=== PATIENT | male | born 1990 | race Caucasian/White ===

== ENCOUNTER 2019-12-22 17:55 | Emergency (ER) | payer BC ==
[~2019-12-22] VITALS: Ht 175.3 cm; Wt 102.2 kg
[2019-12-22] MEDS ORDERED: MVI, ADULT NO.4 WITH VIT K 10 ML, FOLIC ACID INJ 1 MG, THIAMINE INJ 100 MG in IV NORMAL... IV ONE ×4 (18:30)
--- NOTE | 2019-12-22 18:36 | PHYS DOC ---
Past History Past Medical History: No Pertinent History Past Surgical History: No Surgical History Alcohol Use: None General Adult EDM: Chief Complaint: ANXIETY/PANIC ATTACK HPI: HPI: 29 yo male presents via EMS with panic attack. The patient is staying at a hotel because he is getting COVID-19 and he has an immunocompromised family member. He tells me that he was feeling like her legs began. Has had some coughing. Admits to some vomiting but [employer]. Because he was having a panic attack over the holiday and and they called EMS. He is not really sure why he is here. He denies fever or chills. He does not know the results Review of Systems: Review of Systems: Constitutional: Denies fever or chills Eyes: Denies change in visual acuity HENT: Denies nasal congestion or sore throat Respiratory: Cough with occasional shortness of breath Cardiovascular: Denies chest pain or edema GI: nausea, vomiting. Denies abdominal pain, bloody stools or diarrhea : Denies dysuria Musculoskeletal: Denies back pain or joint pain Integument: Denies rash Neurologic: Denies headache, focal weakness or sensory changes Endocrine: Denies polyuria or polydipsia Lymphatic: Denies swollen glands Psychiatric: Denies depression or anxiety Heart Score: Risk Factors: Risk Factors: DM, Current or recent (<one month) smoker, HTN, HLP, family history of CAD, obesity. Risk Scores: Score 0 - 3: 2.5% MACE over next 6 weeks - Discharge Home Score 4 - 6: 20.3% MACE over next 6 weeks - Admit for Clinical Observation Score 7 - 10: 72.7% MACE over next 6 weeks - Early Invasive Strategies Current Medications: Current Meds: Current Medications Medications (Trade) Dose Ordered Sig/[facility] Start Time Stop Time Status Last Admin Dose Admin Multivitamins/ Minerals 10 ml/ Folic Acid 1 mg/ Thiamine HCl 100 mg/Sodium Chloride 1,011.3 ml @ 1,000.187 mls/hr 1X ONCE 12/22/19 18:30 12/22/19 19:30 Allergies: Allergies: Allergies Coded Allergies Type Severity Reaction Last Updated Verified Penicillins Allergy Unknown 12/22/19 Yes Physical Exam: PE: Constitutional: Well developed, well nourished, no acute distress, intoxicated. [] HENT: Normocephalic, atraumatic, bilateral external ears normal, oropharynx moist, no oral exudates, nose normal. [] Eyes: PERRLA, EOMI, conjunctiva normal, no discharge. [] Neck: Normal range of motion, no tenderness, supple, no stridor. [] Cardiovascular:Heart rate regular rhythm, no murmur [] Lungs & Thorax: Bilateral breath sounds clear to auscultation [] Abdomen: Bowel sounds normal, soft, no tenderness, no masses, no pulsatile masses. [] Skin: Warm, dry, no erythema, no rash. [] Back: No tenderness, no CVA tenderness. [] Extremities: No tenderness, no cyanosis, no clubbing, ROM intact, no edema. [] Neurologic: Alert and oriented X 3, normal motor function, normal sensory function, no focal deficits noted. [] Psychologic: Affect normal, judgement normal, mood anxious. [] Current Patient Data: Vital Signs: Vital Signs Date Time Temp Pulse Resp B/P (MAP) Pulse Ox O2 Delivery O2 Flow Rate FiO2 12/22/19 18:24 98.5 80 20 113/68 (83) 99 EKG: EKG: Sinus rhythm, rate 77, normal axis, no ST elevations or depressions. [] Radiology/Procedures: Radiology/Procedures: [] Impressions: Chest AP portable at 2000: Reason for examination: Short of breath. Anxiety. The heart size is normal. Mediastinum is unremarkable. Lung holt show mild increase in markings at the right lung base which could reflect some minimal infiltrates. Recommend clinical correlation follow-up. No acute bony abnormalities are seen. Impression: Mild increase in markings at the right lung base. Cannot exclude some minimal infiltrates. Recommend clinical correlation and follow-up. Electronically signed by: Roxanne Mirza MD (12/22/2019 8:59 PM) [facility] DICTATED AND SIGNED BY: ROXANNE MIRZA MD DATE: 12/22/192058 CC: HAWA MARTINEZ DO; FAISAL GIPSON MD ~ Course & Med Decision Making: Course & Med Decision Making Pertinent Labs and Imaging studies reviewed. (See chart for details) The patient's labs are unremarkable. His chest x-ray is similar to previous, they could not exclude infiltrate. I do not have evidence of infiltrate with his vital signs are his labs. It is still possible that he has COVID-19. That is why he was tested by the health department. Those results are pending. I give the patient 50 mg of Benadryl for his anxiety. He is stable for discharge at this time. [] Dragon Disclaimer: Dragon Disclaimer: This electronic medical record was generated, in whole or in part, using a voice recognition dictation system. Departure Departure: Impression: Primary Impression: Anxiety Additional Impression: Intoxication Disposition: HOME/RESIDENCE PRIOR TO ADM Condition: STABLE Referrals: FAISAL GIPSON MD (PCP) Patient Instructions: Anxiety and Panic Attacks, [id number] Justification of Admission: Justification of Admission: Justification of Admission Dx: N/A HAWA MARTINEZ DO Dec 22, 2019 18:36
[2019-12-22 18:45] LABS: BASO # 0.1 x10^3/uL (0.0-0.2); BASO % 2 % (0-3); CALCIUM 8.6 mg/dL (8.5-10.1); CREATININE 0.9 mg/dL (0.7-1.3); EOS # 0.1 x10^3/uL (0.0-0.7); EOS % 2 % (0-3); GFR 99.8; HEMATOCRIT 50.9 % (39.0-53.0); HEMOGLOBIN 17.1 g/dL (13.0-17.5); LYMPH % 49 % (24-48); MEAN CORPUSCULAR HEMOGLOBIN 31 pg (25-35); MEAN CORPUSCULAR HGB CONC 34 g/dL (31-37); MEAN CORPUSCULAR VOLUME 93 fL (79-100); MONO # 0.5 x10^3/uL (0.0-1.1); MONO % 8 % (0-9); NEUT # 2.4 x10^3uL (1.8-7.7); NEUT % 39 % (31-73); PLATELET COUNT 262 x10^3/uL (140-400); POTASSIUM 3.6 mmol/L (3.5-5.1); RED BLOOD COUNT 5.45 x10^6/uL (4.30-5.70); RED CELL DISTRIBUTION WIDTH 13.4 % (11.5-14.5); WHITE BLOOD COUNT 6.2 x10^3/uL (4.0-11.0)
[2019-12-22 18:51] LABS: ALBUMIN 3.6 g/dL (3.4-5.0); ALBUMIN/GLOBULIN RATIO 0.9 (1.0-1.7); TOTAL BILIRUBIN 0.2 mg/dL (0.2-1.0); TOTAL PROTEIN 7.4 g/dL (6.4-8.2)
[2019-12-22] MEDS ORDERED: diphenhydrAMINE 50 MG/ML VIAL IVP ONE (19:45)
--- NOTE | 2019-12-22 21:02 | RAD ---
Chest AP portable at 2000: Reason for examination: Short of breath. Anxiety. The heart size is normal. Mediastinum is unremarkable. Lung holt show mild increase in markings at the right lung base which could reflect some minimal infiltrates. Recommend clinical correlation follow-up. No acute bony abnormalities are seen. Impression: Mild increase in markings at the right lung base. Cannot exclude some minimal infiltrates. Recommend clinical correlation and follow-up. Electronically signed by: Roxanne Olivares MD (12/22/2019 8:59 PM) [facility]
[2019-12-22] MEDS ORDERED: IV NORMAL SALINE 1,000ML 1,000 ML IV ONE (21:15)
[2019-12-22 21:28] VITALS: BP 125/80
--- NOTE | 2019-12-23 06:30 | EKG ---
[address] [id number] Test Date: 2019-12-22 Test Time: 18:17:13 Pat Name: JAI BREAUX Department: Room: Gender: M Export Sales Assistant: : 1990 Requested By: HAWA MARTINEZ Order Number: [id number] Reading MD: Measurements Intervals [place] Rate: 77 P: 41 NH: 128 QRS: 61 QRSD: 104 T: 59 QT: 366 QTc: 416 Interpretive Statements SINUS RHYTHM NORMAL ECG RI6.02 No previous ECG available for comparison
== END 2019-12-22 21:52 | disposition home or self-care (01) ==
LOC: ER 17:55
DX: F41.9 Anxiety disorder, unspecified (principal); F10.129 Alcohol abuse with intoxication, unspecified; R11.2 Nausea with vomiting, unspecified; Z88.0 Allergy status to penicillin; Y90.9 Presence of alcohol in blood, level not specified
CPT/HCPCS: 36415; 71045; 80053; 85025; 96361; 96365; 96366; 96375; 99285; J1200; J7030